=== PATIENT | female | born 1950 | race Caucasian/White ===

== ENCOUNTER → 2019-03-28 | Day surgery (SDC) | payer MEDICARE, MEDICAID ==
[2019-03-25 12:13] LABS: Basophils # (auto) 0.1 uL; Basophils % (auto) 0.7 % (0.0-2.0); Eosinophils # (auto) 0.1 uL; Eosinophils % (auto) 1.8 % (0.0-7.0); Hemoglobin 12.1 g/dL (12.2-16.2); Lymphocytes # (auto) 2.2 uL; Lymphocytes % (auto) 28.2 % (10.0-50.0); Mean Corpuscular Hemoglobin 27.5 pg (28.0-32.0); Mean Corpuscular Hgb Conc. 32.6 g/dL (32.0-36.0); Mean Corpuscular Volume 84.2 fL (80.0-100.0); Monocytes # (auto) 0.6 uL; Monocytes % (auto) 7.9 % (0.0-12.0); Neutrophils # (auto) 4.9 uL; Neutrophils % (auto) 61.4 % (37.0-80.0); Platelet Count (auto) 293 10^3/uL (140-450); Red Cell Distribution Width 14.3 % (11.8-14.3)
[2019-03-25 12:15] LABS: Urine Bacteria NONE SEEN /hpf (None Seen); Urine Blood TRACE /uL (Negative); Urine Mucus FEW (None Seen); Urine Specific Gravity 1.018 (1.001-1.035); Urine WBC 2 /hpf (0 - 5)
[2019-03-25 12:30] LABS: INR 0.96 (0.9-1.15); Partial Thromboplastin Time 26.9 sec (23.64-32.05)
[2019-03-25 14:06] LABS: Anion Gap 6 (5-15); Carbon Dioxide 28 mmol/L (21-32); Chloride 107 mmol/L (98-107); Potassium 4.3 mmol/L (3.5-5.1); Sodium 141 mmol/L (136-145)
[2019-03-25 14:07] LABS: Alanine Aminotransferase 17 U/L (13-56); Albumin 3.6 g/dL (3.4-5.0); Alkaline Phosphatase 128 U/L (45-117); Aspartate Aminotransferase 22 U/L (15-37); BUN/Creatinine Ratio 15.8; Bilirubin, Total 0.3 mg/dL (0.2-1.0); Blood Urea Nitrogen 21 mg/dL (7-18); Calcium 8.6 mg/dL (8.5-10.1); GFR African American 51 mL/min; GFR Non-African American 42 mL/min; Glucose 106 mg/dL (74-106); Total Protein 7.3 g/dL (6.4-8.2)
[~2019-03-28] VITALS: Ht 165.1 cm; Wt 97.5 kg
[~2019-03-28] MED LIST: ACCU-CHEK COMFORT CURVE STRIP VI ONE; BUPIVACAINE W/ EPINEPH 0.25% INJ 50ML MDV ONE; BUSP15TA60 PO; CLINDAMYCIN 900MG IV 50 ML IV ONE; HYDR-531 PO; HYDROmorphone HCL 2 MG/ML VL IV PRN; LIDOCAINE 1% HCL (LOCAL ANESTH.) INJ 20ML MDV ONE; METF-370 PO; METOCLOPRAMIDE HCL 5MG/ml INJ 2ml VIAL ONE; MIDAZOLAM HCL 1MG/1ML-2 ML VIAL ONE; MIRT1TAB40 PO; MORP1TAB12 PO; NALOXONE HCL 0.4 MG/ML VIAL IV PRN; OMEP20TA PO; ONDANSETRON HCL 4 MG/2 ML VIAL IV PRN; PHENYLEPHRINE HCL 10 MG/ML VL ONE; PROPOFOL 10 MG/ML 20 ML IV ONE; ROCURONIUM 10MG/ML 10ML VIAL IV ONE; STERILE WATER 10 ML ONE; SUCCINYLCHOLINE CHLORIDE 20 MG/ML 10ML VIAL IV ONE; TRAZ100T3 PO; TRIA75TA55 PO; fentaNYL CITRATE 100 MCG/2 ML VL ONE; hydrALAZINE HCL 20 MG/ML VL IV PRN
[2019-03-28] MEDS: HYDROmorphone HCL 2 MG/ML VL IV PRN ×3 (11:52→12:14)
[2019-03-28 12:16] VITALS: BP 144/64
== END | disposition home or self-care (01) ==
LOC: SUR 08:36
PROVIDERS: ATTEND Orthopaedic Surgery
DX: S82.141A Displaced bicondylar fracture of right tibia, initial encounter for closed fracture (principal); T84.498D Other mechanical complication of other internal orthopedic devices, implants and grafts, subsequent encounter; M65.861 Other synovitis and tenosynovitis, right lower leg; F32.9 Major depressive disorder, single episode, unspecified; J44.9 Chronic obstructive pulmonary disease, unspecified; F41.9 Anxiety disorder, unspecified; E66.9 Obesity, unspecified; M19.90 Unspecified osteoarthritis, unspecified site; K21.9 Gastro-esophageal reflux disease without esophagitis; G47.33 Obstructive sleep apnea (adult) (pediatric); I12.9 Hypertensive chronic kidney disease with stage 1 through stage 4 chronic kidney disease, or unspecified chronic kidney disease; E11.22 Type 2 diabetes mellitus with diabetic chronic kidney disease; N18.9 Chronic kidney disease, unspecified; Z79.84 Long term (current) use of oral hypoglycemic drugs; Z79.899 Other long term (current) drug therapy; Z96.653 Presence of artificial knee joint, bilateral; Z90.710 Acquired absence of both cervix and uterus; Z88.0 Allergy status to penicillin; Z86.73 Personal history of transient ischemic attack (TIA), and cerebral infarction without residual deficits; Z68.37 Body mass index [BMI] 37.0-37.9, adult; X58.XXXA Exposure to other specified factors, initial encounter; Y93.89 Activity, other specified; Y92.89 Other specified places as the place of occurrence of the external cause; Y99.8 Other external cause status
CPT/HCPCS: 29856; 29876; 36415; 73560; 80053; 81001; 82962; 83036; 85025; 85610; 85730; C1713; C1781; J0330; J1170; J2001; J2250; J2370; J2704; J2765; J3010; J3490; 76000

== ENCOUNTER 2019-05-30 06:45 | Inpatient (IN) | payer MEDICARE, MEDICAID ==
[~2019-05-30] VITALS: Ht 167.6 cm; Wt 102.8 kg
[~2019-05-30 06:45] MED LIST changes: -ACCU-CHEK COMFORT CURVE STRIP VI ONE; -BUPIVACAINE W/ EPINEPH 0.25% INJ 50ML MDV ONE; -CLINDAMYCIN 900MG IV 50 ML IV ONE; -HYDROmorphone HCL 2 MG/ML VL IV PRN; -LIDOCAINE 1% HCL (LOCAL ANESTH.) INJ 20ML MDV ONE; -METOCLOPRAMIDE HCL 5MG/ml INJ 2ml VIAL ONE; -MIDAZOLAM HCL 1MG/1ML-2 ML VIAL ONE; -NALOXONE HCL 0.4 MG/ML VIAL IV PRN; -ONDANSETRON HCL 4 MG/2 ML VIAL IV PRN; -PHENYLEPHRINE HCL 10 MG/ML VL ONE; -PROPOFOL 10 MG/ML 20 ML IV ONE; -ROCURONIUM 10MG/ML 10ML VIAL IV ONE; -STERILE WATER 10 ML ONE; -SUCCINYLCHOLINE CHLORIDE 20 MG/ML 10ML VIAL IV ONE; -fentaNYL CITRATE 100 MCG/2 ML VL ONE; -hydrALAZINE HCL 20 MG/ML VL IV PRN
[2019-06-23] MEDS ORDERED: DOCU250C3 PO (10:38)
[2019-06-23] MEDS ORDERED: [UNRECOGNIZED DRUG - CODE] PO (10:38)
[2019-06-23] MEDS ORDERED: MULTTAB PO (10:38)
[2019-06-23] MEDS ORDERED: CALC-440 PO (10:38)
[2019-06-23] MEDS ORDERED: [UNRECOGNIZED DRUG - CODE] PO (10:38)
[2019-06-23] MEDS ORDERED: B-COTAB59 PO (10:38)
[2019-06-23 11:26] LABS: Basophils # (auto) 0 10 ^3/uL (0-0.2); Eosinophils # (auto) 0.1 10 ^3/uL (0-0.8); Hemoglobin 13.1 g/dL (12.2-16.2); Lymphocytes # (auto) 2.1 10 ^3/uL (0.4-5.4); Monocytes # (auto) 0.6 10 ^3/uL (0-1.3); Red Cell Distribution Width 14.9 % (11.8-14.3)
[2019-06-23 11:27] LABS: Basophils % (auto) 0.6 % (0.0-2.0); Eosinophils % (auto) 1.6 % (0.0-7.0); Hematocrit 40.3 % (36.0-46.0); Lymphocytes % (auto) 34.2 % (10.0-50.0); Mean Corpuscular Hemoglobin 26.9 pg (28.0-32.0); Mean Corpuscular Hgb Conc. 32.4 g/dL (32.0-36.0); Mean Corpuscular Volume 83.1 fL (80.0-100.0); Monocytes % (auto) 9.2 % (0.0-12.0); Neutrophils # (auto) 3.4 10 ^3/uL (1.6-8.6); Neutrophils % (auto) 54.4 % (37.0-80.0); Platelet Count (auto) 269 10^3/uL (140-450); Red Blood Cells 4.85 10^6/uL (4.0-5.20); White Blood Cell 6.2 10^3/uL (4.4-10.8)
[2019-06-23 11:30] LABS: Urine Bacteria NONE SEEN /hpf (None Seen); Urine Blood Negative /uL (Negative); Urine Specific Gravity 1.018 (1.001-1.035); Urine WBC <1 /hpf (0 - 5)
[2019-06-23 11:41] LABS: INR 0.98 (0.9-1.15); Partial Thromboplastin Time 26.5 sec (23.64-32.05)
[2019-06-23 11:45] LABS: Albumin 3.5 g/dL (3.4-5.0); Calcium 8.7 mg/dL (8.5-10.1); Potassium 4.2 mmol/L (3.5-5.1)
[2019-06-23 11:48] LABS: Bilirubin, Total 0.3 mg/dL (0.2-1.0); Total Protein 7.7 g/dL (6.4-8.2)
[2019-06-27] MEDS ORDERED: CLINDAMYCIN 600MG IV 0 ML IV ONE (07:00)
[2019-06-27] MEDS ORDERED: BACITRACIN INJ 50000 UNIT VIAL ONE (07:22)
[2019-06-27] MEDS ORDERED: SUCCINYLCHOLINE CHLORIDE 20 MG/ML 10ML VIAL IV ONE (07:22)
[2019-06-27] MEDS ORDERED: MIDAZOLAM HCL 1MG/1ML-2 ML VIAL ONE (07:26)
[2019-06-27] MEDS ORDERED: fentaNYL CITRATE 100 MCG/2 ML VL ONE ×2 (07:26→08:02)
[2019-06-27] MEDS ORDERED: HYDROmorphone HCL 2 MG/ML VL ONE (07:26)
[2019-06-27] MEDS ORDERED: DexAMETHasone SOD PHOS 10MG/1ML VIAL INJ ONE (07:30)
[2019-06-27] MEDS ORDERED: CLINDAMYCIN 900MG IV 50 ML IV ONE (07:34)
[2019-06-27] MEDS ORDERED: ETOMIDATE (2MG/ML) 20ML VIAL IV ONE (08:01)
[2019-06-27] MEDS ORDERED: ACCU-CHEK COMFORT CURVE STRIP VI ONE (08:45)
[2019-06-27] MEDS ORDERED: MIDAZOLAM HCL 1MG/1ML-2 ML VIAL IV PRN (08:45)
[2019-06-27] MEDS ORDERED: MORPHINE SULFATE 4 MG/ML SYR/VIAL IV PRN (08:45)
[2019-06-27] MEDS ORDERED: LABETALOL HCL 5 MG/ML 4ML SYRINGE IV PRN (08:45)
[2019-06-27] MEDS ORDERED: ONDANSETRON HCL 4 MG/2 ML VIAL IV PRN (08:45)
[2019-06-27] MEDS ORDERED: ePHEDrine SULFATE 50 MG/ML AMP IV PRN (08:45)
[2019-06-27] MEDS ORDERED: PHENYLEPHRINE HCL 10 MG/ML VL ONE (09:37)
[2019-06-27] MEDS: HYDROmorphone HCL 2 MG/ML VL IV PRN ×3 (10:18→10:45)
[2019-06-27] MEDS: LACTATED RINGER'S 1,000 ML IV SCH ×2 (10:19→20:19)
[2019-06-27] MEDS ORDERED: NITROGLYCERIN 0.4 MG SL TAB SL PRN (10:30)
[2019-06-27] MEDS ORDERED: MORPHINE SULF INJ 2 MG/ML SYRINGE 1ML IV PRN (10:30)
[2019-06-27] MEDS: CLINDAMYCIN 600MG IV 50 ML IV SCH ×2 (11:44→18:19)
[2019-06-27 12:30] VITALS: BP 112/55
[2019-06-27] MEDS: MORPHINE SULFATE 4 MG/ML SYR/VIAL IV PRN ×3 (14:09→22:45)
[2019-06-27 17:00] VITALS: BP 117/63
[2019-06-27 20:00] VITALS: BP 122/59
[2019-06-27] MEDS: DOCUSATE SOD 100 MG CAP PO SCH (21:26)
[2019-06-27] MEDS: OXYCODONE W/ ACETAMINOPHEN 5/325MG TABLET PO PRN (21:27)
[2019-06-27 22:00] VITALS: BP 122/59
[2019-06-28] MEDS: CLINDAMYCIN 600MG IV 50 ML IV SCH (00:41)
[2019-06-28] MEDS: MORPHINE SULFATE 4 MG/ML SYR/VIAL IV PRN (04:13)
[2019-06-28 05:00] VITALS: BP 115/55
[2019-06-28 05:50] LABS: Hematocrit 30.5 % (36.0-46.0); Hemoglobin 10.1 g/dL (12.2-16.2)
[2019-06-28 06:11] LABS: Albumin 2.7 g/dL (3.4-5.0); BUN/Creatinine Ratio 27.5; Calcium 7.9 mg/dL (8.5-10.1)
[2019-06-28 06:14] LABS: Bilirubin, Total 0.4 mg/dL (0.2-1.0); Total Protein 5.9 g/dL (6.4-8.2)
[2019-06-28] MEDS: LACTATED RINGER'S 1,000 ML IV SCH ×2 (06:19→16:19)
[2019-06-28 09:00] VITALS: BP 126/65
[2019-06-28] MEDS: DOCUSATE SOD 100 MG CAP PO SCH ×2 (09:39→22:18)
[2019-06-28] MEDS: MORPHINE SULF INJ 2 MG/ML SYRINGE 1ML IV PRN ×2 (09:40→17:35)
[2019-06-28 13:00] VITALS: BP 126/66
[2019-06-28] MEDS: OXYCODONE W/ ACETAMINOPHEN 5/325MG TABLET PO PRN ×2 (13:36→20:24)
[2019-06-28 17:00] VITALS: BP 127/61
[2019-06-28 22:00] VITALS: BP 129/68
[2019-06-28] MEDS: ONDANSETRON HCL 4 MG/2 ML VIAL IV PRN (22:17)
[2019-06-29] MEDS: OXYCODONE W/ ACETAMINOPHEN 5/325MG TABLET PO PRN ×2 (00:58→14:25)
[2019-06-29] MEDS: LACTATED RINGER'S 1,000 ML IV SCH ×3 (02:09→22:21)
[2019-06-29] MEDS: MORPHINE SULF INJ 2 MG/ML SYRINGE 1ML IV PRN ×7 (02:11→23:00)
[2019-06-29 05:00] VITALS: BP 118/57
[2019-06-29 05:48] LABS: Basophils # (auto) 0 10 ^3/uL (0-0.2); Basophils % (auto) 0.3 % (0.0-2.0); Eosinophils # (auto) 0.1 10 ^3/uL (0-0.8); Eosinophils % (auto) 0.8 % (0.0-7.0); Hematocrit 30.1 % (36.0-46.0); Lymphocytes # (auto) 2.1 10 ^3/uL (0.4-5.4); Lymphocytes % (auto) 22.1 % (10.0-50.0); Mean Corpuscular Hemoglobin 27.7 pg (28.0-32.0); Mean Corpuscular Hgb Conc. 33.3 g/dL (32.0-36.0); Monocytes # (auto) 1.1 10 ^3/uL (0-1.3); Monocytes % (auto) 11.9 % (0.0-12.0); Neutrophils # (auto) 6.1 10 ^3/uL (1.6-8.6); Neutrophils % (auto) 64.9 % (37.0-80.0); Nucleated Red Blood Cells % 0.1 %; Platelet Count (auto) 213 10^3/uL (140-450); Red Blood Cells 3.63 10^6/uL (4.0-5.20); Red Cell Distribution Width 15.1 % (11.8-14.3); White Blood Cell 9.4 10^3/uL (4.4-10.8)
[2019-06-29] MEDS: ONDANSETRON HCL 4 MG/2 ML VIAL IV PRN (05:58)
[2019-06-29 06:15] LABS: Albumin 2.5 g/dL (3.4-5.0); BUN/Creatinine Ratio 30.3; Bilirubin, Total 0.5 mg/dL (0.2-1.0); Calcium 7.7 mg/dL (8.5-10.1); Total Protein 5.7 g/dL (6.4-8.2)
[2019-06-29 08:00] VITALS: BP 107/55
[2019-06-29 09:00] VITALS: BP 105/69
[2019-06-29] MEDS: RIVAROXABAN 10 MG TAB PO SCH (09:54)
[2019-06-29] MEDS: DOCUSATE SOD 100 MG CAP PO SCH ×2 (09:54→22:19)
[2019-06-29 13:00] VITALS: BP 117/66
[2019-06-29 17:16] VITALS: BP 96/59
[2019-06-29 22:00] VITALS: BP 122/57
[2019-06-30] MEDS: MORPHINE SULF INJ 2 MG/ML SYRINGE 1ML IV PRN ×4 (01:10→10:13)
[2019-06-30 04:55] VITALS: BP 128/61
[2019-06-30 06:54] LABS: Hematocrit 29.3 % (36.0-46.0); Hemoglobin 9.9 g/dL (12.2-16.2)
[2019-06-30] MEDS: OXYCODONE W/ ACETAMINOPHEN 5/325MG TABLET PO PRN (08:30)
[2019-06-30] MEDS: RIVAROXABAN 10 MG TAB PO SCH (10:05)
[2019-06-30] MEDS: DOCUSATE SOD 100 MG CAP PO SCH (10:05)
== END 2019-06-30 15:55 | disposition home or self-care (01) | DRG 301 ==
LOC: EDSTATUS 06:45 → OVERFLOW 06-27 06:06 → TELE-WESTW 06-27 11:36 → WEST WING 06-27 18:58
PROVIDERS: ADMIT Orthopaedic Surgery; ATTEND Orthopaedic Surgery
PROC: 0SR90JA Replacement of Right Hip Joint with Synthetic Substitute, Uncemented, Open Approach (ICD-10-PCS; principal; 2019-06-27 07:35)
DX: M16.11 Unilateral primary osteoarthritis, right hip (principal); J44.9 Chronic obstructive pulmonary disease, unspecified; M87.851 Other osteonecrosis, right femur; E11.9 Type 2 diabetes mellitus without complications; M24.551 Contracture, right hip; M24.651 Ankylosis, right hip; I10 Essential (primary) hypertension; F32.9 Major depressive disorder, single episode, unspecified; M54.5 Low back pain; G89.29 Other chronic pain; Z79.899 Other long term (current) drug therapy; Z83.3 Family history of diabetes mellitus; Z82.49 Family history of ischemic heart disease and other diseases of the circulatory system; Z82.61 Family history of arthritis; Z88.0 Allergy status to penicillin; Z90.710 Acquired absence of both cervix and uterus
CPT/HCPCS: 36415; 72170; 80053; 81001; 82962; 85014; 85018; 85025; 85610; 85730; 86850; 86900; 86901; 97110; 97116; 97530; C1776; G0378; J0330; J1100; J2250; J2405; J3490